=== PATIENT | male | born 1995 | race African-American/Black ===

== ENCOUNTER 2024-12-02 01:47 | Emergency (ER) | payer OTHER ==
[2024-12-02 02:03] VITALS: BP 137/95; PULSE 100; RESP 18; TEMP 98.8; BMI 19.8
[2024-12-02] MEDS ORDERED: KETOROLAC TROMETHAMINE 30 MG/1 ML VIAL ONE (02:23)
[2024-12-02] MEDS ORDERED: ONDANSETRON *ODT* 4 MG TABLET ONE (02:34)
[2024-12-02] MEDS: KETOROLAC TROMETHAMINE 30 MG/1 ML VIAL IM ONE (02:42)
[2024-12-02] MEDS: ONDANSETRON *ODT* 4 MG TABLET SL ONE (02:45)
[2024-12-02] MEDS ORDERED: CEPHALEXIN MONOHYDRATE 500 MG CAPSULE (UD) ONE (03:53)
[2024-12-02] MEDS: CEPHALEXIN MONOHYDRATE 500 MG CAPSULE (UD) PO ONE (04:02)
== END 2024-12-02 04:57 | disposition home or self-care (01) ==
LOC: JER 01:47
PROC: 3E0233Z Introduction of Anti-inflammatory into Muscle, Percutaneous Approach (ICD-10-PCS; principal; 2024-12-02)
DX: M79.645 Pain in left finger(s) (principal); M79.89 Other specified soft tissue disorders; R00.0 Tachycardia, unspecified; R11.0 Nausea
CPT/HCPCS: 73110-TC-LT-FY; 73130-TC-LT-FY; 99284-25; Q0162

== ENCOUNTER 2024-12-03 16:13 | Inpatient (IN) | payer OTHER ==
[2024-12-03] MEDS ORDERED: KETOROLAC TROMETHAMINE 15 MG/ML VIAL ONE (17:27)
[2024-12-03] MEDS ORDERED: AMPICILLIN NA/SULBACTAM NA 3 GM/100 ML BAG IVPB ONE (17:30)
[2024-12-03] MEDS ORDERED: VANCOMYCIN 1 GM PREMIX (F) 1 GM/200 ML BAG ONE (17:30)
[2024-12-03 18:13] LABS: ABSOLUTE IMMATURE GRANULOCYTES 0.03 x10^3/uL (0.0-0.031); BASOPHILS # 0.05 x10^3/uL (0.01-0.08); EOSINOPHIL % 0.5 % (0.8-7.0); EOSINOPHILS # 0.06 x10^3/uL (0.04-0.54); MCHC 32.6 g/dl (32.3-36.5); MEAN CELL VOLUME 90.5 fl (79.0-92.2); MEAN PLT VOLUME 11.2 fl (9.4-12.4); MONOCYTE # 1.10 x10^3/uL (0.30-0.82); MONOCYTE % 9.5 % (5.3-12.2); RDW 11.9 % (11.9-15.3)
[2024-12-03] MEDS: KETOROLAC TROMETHAMINE 15 MG/ML VIAL IVPUSH ONE (18:13)
[2024-12-03] MEDS: AMPICILLIN NA/SULBACTAM NA 3 GM in SODIUM CHLORIDE 100 ML IVPB ONE (18:13)
[2024-12-03] MEDS: VANCOMYCIN 1,000 MG in DEXTROSE 5%-WATER - 250 ML IVPB ONE (18:13)
[2024-12-03 18:46] LABS: GLUCOSE,RANDOM 89.0 mg/dL (74-106); TOT PROT 7.7 g/dl (6.4-8.2)
[2024-12-03 18:48] LABS: CO2 28.0 mmol/L (21-32)
[2024-12-03 18:49] LABS: ALK PHOS 66.0 U/L (40-150)
[2024-12-03 18:52] LABS: CREATININE 1.17 mg/dL (0.55-1.3); SGOT/AST 32.0 U/L (5-34); SGPT/ALT 27.0 U/L (0-55)
[2024-12-03 19:32] LABS: ERYTHROCYTE SEDIMENTATION RATE 26 mm/hr (0-10)
[2024-12-03] MEDS ORDERED: PIPERACILLIN/TAZOB 3.375 GM 3.375 GM/50 ML BAG IVPB ONE (21:52)
[2024-12-03] MEDS: PIPERACILLIN/TAZOB 3.375 GM 3.375 GM in DEXTROSE 5%-WATER - 50 ML IVPB SCH (22:01)
[2024-12-04 00:19] VITALS: BMI 19.5
[2024-12-04] MEDS: ACETAMINOPHEN 325 MG TABLET (FP) PO PRN (00:21)
[2024-12-04 07:47] LABS: ABSOLUTE IMMATURE GRANULOCYTES 0.04 x10^3/uL (0.0-0.031); BASOPHILS # 0.05 x10^3/uL (0.01-0.08); EOSINOPHIL % 1.4 % (0.8-7.0); EOSINOPHILS # 0.14 x10^3/uL (0.04-0.54); MCHC 31.9 g/dl (32.3-36.5); MEAN CELL VOLUME 91.4 fl (79.0-92.2); MEAN PLT VOLUME 11.2 fl (9.4-12.4); MONOCYTE # 1.02 x10^3/uL (0.30-0.82); MONOCYTE % 10.2 % (5.3-12.2); RDW 11.9 % (11.9-15.3)
[2024-12-04 09:13] LABS: GLUCOSE,RANDOM 87.0 mg/dL (74-106); TOT PROT 7.0 g/dl (6.4-8.2)
[2024-12-04 09:14] LABS: CO2 31.0 mmol/L (21-32)
[2024-12-04 09:16] LABS: ALK PHOS 60.0 U/L (40-150)
[2024-12-04 09:19] LABS: SGOT/AST 29.0 U/L (5-34); SGPT/ALT 25.0 U/L (0-55)
[2024-12-04 09:21] LABS: CREATININE 1.46 mg/dL (0.55-1.3)
[2024-12-04] MEDS: MAGNESIUM SULF 50% (8.12 MEQ/2 ML-1 GM VIAL) IVPB ONE (11:32)
[2024-12-04] MEDS: ENOXAPARIN NA (PORCINE) 40 MG/0.4 ML DISP.SYRIN SQ SCH (11:32)
[2024-12-04] MEDS: PIPERACILLIN/TAZOB 3.375 GM 3.375 GM in DEXTROSE 5%-WATER - 50 ML IVPB SCH (19:45)
[2024-12-04] MEDS: VANCOMYCIN/WATER FOR INJ (PEG) 1,000 MG/200 ML BAG IVPB SCH (20:29)
[2024-12-04] MEDS: KETOROLAC TROMETHAMINE 30 MG/1 ML VIAL IVPUSH PRN (21:35)
[2024-12-05] MEDS: PIPERACILLIN/TAZOB 3.375 GM 3.375 GM in DEXTROSE 5%-WATER - 50 ML IVPB SCH (01:14)
[2024-12-05 08:30] LABS: MCHC 32.0 g/dl (32.3-36.5); MEAN CELL VOLUME 91.4 fl (79.0-92.2); MEAN PLT VOLUME 10.4 fl (9.4-12.4); RDW 11.9 % (11.9-15.3)
[2024-12-05 08:56] LABS: GLUCOSE,RANDOM 89.0 mg/dL (74-106); TOT PROT 6.8 g/dl (6.4-8.2)
[2024-12-05 08:57] LABS: CO2 31.0 mmol/L (21-32)
[2024-12-05 08:59] LABS: ALK PHOS 51.0 U/L (40-150)
[2024-12-05 09:01] LABS: SGOT/AST 25.0 U/L (5-34); SGPT/ALT 21.0 U/L (0-55)
[2024-12-05 09:03] LABS: CREATININE 1.34 mg/dL (0.55-1.3)
[2024-12-06] MEDS ORDERED: SUCCINYLCHOLINE CHLORIDE 200 MG/10 ML SYRINGE ONE (05:42)
[2024-12-06] MEDS ORDERED: PROPOFOL 20 ML ONE ×2 (05:42→05:51)
[2024-12-06] MEDS ORDERED: MIDAZOLAM HCL 2 MG/2 ML SINGLE DOSE VIAL ONE (05:43)
[2024-12-06] MEDS ORDERED: ONDANSETRON 4 MG/2 ML VIAL IVPUSH PRN (06:22)
[2024-12-06] MEDS ORDERED: ACETAMINOPHEN 325 MG TABLET (FP) PO PRN (06:23)
[2024-12-06] MEDS: LACTATED RINGERS SOLUTION 1,000 ML IV SCH (06:25)
[2024-12-06] MEDS: KETOROLAC TROMETHAMINE 30 MG/1 ML VIAL IVPUSH PRN (08:47)
[2024-12-06] MEDS: ENOXAPARIN NA (PORCINE) 40 MG/0.4 ML DISP.SYRIN SQ SCH (09:29)
[2024-12-06] MEDS: VANCOMYCIN/WATER FOR INJ (PEG) 1,000 MG/200 ML BAG IVPB SCH (09:29)
[2024-12-06] MEDS: PIPERACILLIN/TAZOB 3.375 GM 3.375 GM in DEXTROSE 5%-WATER - 50 ML IVPB SCH (11:22)
[2024-12-06 14:09] VITALS: RESP 18
[2024-12-07 08:41] LABS: MCHC 32.6 g/dl (32.3-36.5); MEAN CELL VOLUME 89.1 fl (79.0-92.2); MEAN PLT VOLUME 11.0 fl (9.4-12.4); RDW 11.5 % (11.9-15.3)
[2024-12-07 08:51] VITALS: BP 128/95; PULSE 78; TEMP 98.2
[2024-12-07 09:18] LABS: GLUCOSE,RANDOM 96.0 mg/dL (74-106); TOT PROT 6.8 g/dl (6.4-8.2)
[2024-12-07 09:19] LABS: CO2 26.0 mmol/L (21-32)
[2024-12-07 09:21] LABS: ALK PHOS 52.0 U/L (40-150)
[2024-12-07 09:23] LABS: SGOT/AST 17.0 U/L (5-34); SGPT/ALT 13.0 U/L (0-55)
[2024-12-07 09:24] LABS: CREATININE 1.28 mg/dL (0.55-1.3)
== END 2024-12-07 13:11 | disposition left against medical advice (07) | DRG 364 ==
LOC: JER 16:13 → JERBED 18:29 → J7W 22:45
PROVIDERS: ADMIT Family Medicine; ATTEND Family Medicine
PROC: 0J9K0ZZ Drainage of Left Hand Subcutaneous Tissue and Fascia, Open Approach (ICD-10-PCS; principal; 2024-12-06 05:34)
DX: L03.114 Cellulitis of left upper limb (principal); L30.9 Dermatitis, unspecified
CPT/HCPCS: 36415; 73201-TC-RT; 80053; 83605; 83735; 84100; 85025; 85027; 85651; 86140; 87040; 87070; 87205; 94760; 99285-25; G0480; Q9967